=== PATIENT | male | born 1960 | race Caucasian/White ===

== ENCOUNTER 2019-09-08 10:15 | Inpatient (IN) | payer OTHER ==
[~2019-09-08] VITALS: Ht 177.8 cm; Wt 99.1 kg
--- NOTE | 2019-09-08 05:00 | NUR ---
Telemetry admit from ER HILARY MORRISONKATE Irving admitted to Telemetry unit after SBAR received. Patient oriented to Ju Karimi, primary RN, unit, room, bed, and unit policies regarding patient care and visiting hours. Patient now on continuous telemetry monitoring, tele box 68 and telemetry reading on arrival to unit is NSR 64. Patient placed on bedside oxygen, weighed by bedscale and encouraged to call if they need something. All questions and concerns addressed, patient verbalized understanding. Note:
[2019-09-08] MEDS ORDERED: HYDROmorphone HCL 2 MG/ML VL IV ONE ×2 (10:45→12:45)
[2019-09-08] MEDS ORDERED: ONDANSETRON HCL 4 MG/2 ML VIAL IV ONE (10:45)
[2019-09-08 10:50] LABS: Basophils # (auto) 0.1 10 ^3/uL (0-0.2); Basophils % (auto) 0.6 % (0.0-2.0); Eosinophils # (auto) 0 10 ^3/uL (0-0.8); Eosinophils % (auto) 0.1 % (0.0-7.0); Hematocrit 47.4 % (41.0-53.0); Hemoglobin 15.6 g/dL (13.5-17.5); Lymphocytes # (auto) 2.2 10 ^3/uL (0.4-5.4); Monocytes # (auto) 1.6 10 ^3/uL (0-1.3); Monocytes % (auto) 8.2 % (0.0-12.0); Neutrophils # (auto) 16.1 10 ^3/uL (1.6-8.6); Neutrophils % (auto) 80.1 % (37.0-80.0); Nucleated Red Blood Cells % 0.1 %; Platelet Count (auto) 376 10^3/uL (140-450); Red Blood Cells 5.04 10^6/uL (4.5-5.90)
[2019-09-08 10:53] LABS: INR 0.96 (0.9-1.15); Partial Thromboplastin Time 25.4 sec (23.64-32.05)
[2019-09-08 10:57] LABS: Albumin 3.2 g/dL (3.4-5.0); Calcium 8.6 mg/dL (8.5-10.1); Potassium 3.6 mmol/L (3.5-5.1)
[2019-09-08] MEDS ORDERED: LABETALOL HCL 5 MG/ML 4ML SYRINGE IV ONE ×2 (11:00→12:45)
[2019-09-08] MEDS ORDERED: SODIUM CHLORIDE 0.9% 1,000 ML IV ONE (11:00)
[2019-09-08 11:02] LABS: BUN/Creatinine Ratio 12.1; Bilirubin, Total 0.9 mg/dL (0.2-1.0)
[2019-09-08] MEDS ORDERED: PIPERACILLIN-TAZOB 3.375GM 100 ML IV ONE (12:00)
[2019-09-08 12:39] LABS: Urine Bacteria NONE SEEN /hpf (None Seen); Urine Blood Negative /uL (Negative); Urine Specific Gravity 1.024 (1.001-1.035); Urine WBC 1 /hpf (0 - 3)
[2019-09-08] MEDS ORDERED: LABETALOL HCL 5 MG/ML ML 20ML VIAL IV ONE (13:00)
[2019-09-08] MEDS ORDERED: GASTROGRAFIN 120 ML SOL ONE (13:06)
[2019-09-08] MEDS ORDERED: MORPHINE SULF INJ 2 MG/ML SYRINGE 1ML IV PRN ×2 (13:15→13:30)
[2019-09-08] MEDS ORDERED: NITROGLYCERIN 0.4 MG SL TAB SL PRN (13:15)
[2019-09-08] MEDS ORDERED: DEXTROSE (50%) 50ML SYRG IV PRN (13:30)
[2019-09-08] MEDS ORDERED: LORazepam 2MG/ML-1ML VIAL IV PRN (13:30)
[2019-09-08] MEDS ORDERED: ALBUTEROL SULF 2.5 MG/0.5ML(0.5%) NEB SOLN NEB PRN (13:30)
[2019-09-08] MEDS ORDERED: ONDANSETRON HCL 4 MG/2 ML VIAL IV PRN (13:30)
[2019-09-08] MEDS ORDERED: PROMETHAZINE HCL 25 MG/ML 1ML IV PRN (13:30)
[2019-09-08] MEDS ORDERED: levoFLOXacin 500MG 100 ML IV ONE (13:30)
[2019-09-08] MEDS ORDERED: ENOXAPARIN SOD 40 MG/0.4 ML SYRINGE SC ONE (13:45)
[2019-09-08] MEDS ORDERED: metroNIDAZOLE 500MG/100ML 100 ML IV ONE (13:45)
[2019-09-08 14:34] VITALS: BP 181/105
[2019-09-08] MEDS: ACCU-CHEK COMFORT CURVE STRIP VI SCH ×2 (16:33→20:11)
[2019-09-08] MEDS: SODIUM CHLORIDE 0.9% 1,000 ML IV SCH ×2 (16:33→23:30)
[2019-09-08] MEDS: FAMOTIDINE (10MG/ML) 2ML VL IV SCH (16:33)
[2019-09-08] MEDS: InsuLIN REG 1unit/0.01ml Soln (100units/ml) SC SCH ×3 (16:33→20:15)
[2019-09-08] MEDS: metroNIDAZOLE 500MG/100ML 100 ML IV SCH ×2 (16:33→21:58)
[2019-09-08] MEDS ORDERED: LABETALOL HCL 5 MG/ML 4ML SYRINGE IV PRN (16:45)
[2019-09-09] MEDS: MORPHINE SULF INJ 2 MG/ML SYRINGE 1ML IV PRN ×3 (00:28→21:45)
[2019-09-09] MEDS: FAMOTIDINE (10MG/ML) 2ML VL IV SCH ×2 (01:36→14:22)
[2019-09-09] MEDS: InsuLIN REG 1unit/0.01ml Soln (100units/ml) SC SCH ×6 (03:57→21:29)
[2019-09-09] MEDS: ACCU-CHEK COMFORT CURVE STRIP VI SCH ×6 (03:57→21:29)
[2019-09-09 05:00] VITALS: BP 110/64
[2019-09-09 05:22] VITALS: BP 120/67
[2019-09-09] MEDS: metroNIDAZOLE 500MG/100ML 100 ML IV SCH ×3 (06:11→21:30)
--- NOTE | 2019-09-09 06:47 | NUR ---
PT SCREAMING AT STAFF STATING HE WANTS EVERYTHING DISCONNECTED SO HE CAN GO TO THE BATHROOM. GAVE PT A URINAL WHICH HE THREW ON THE FLOOR. PT THREATENING TO PULL OUT IV AND NGTUBE IF HE IS NOT ASSISTED INTO THE BATHROOM.PT REFUSES TO USE THE URINAL.OXYGEN TUBING CONVERTED TO EXTRA LONG LENGTH;NG TUBE DISCONNECTED FROM THE WALL AND IV DISCONNECTED FROM PATIENT'S ARM SO HE CAN WALK TO THE BATHROOM.
--- NOTE | 2019-09-09 07:50 | NUR ---
Patient on O2 at 3 LPM via long nasal cannula.
--- NOTE | 2019-09-09 07:50 | NUR ---
Patient complained of dry mouth, asked for ice chips. Explained to patient he's on nothing by mouth. Patient screamed, verbalized "I swear I 'll gonna leave this hospital!" Patient screamed he will pull out all his tubings. Told the patient calmly not to raise his voice. Patient on NGT on low intermittent suction draining reddish/brownish fluid. About 100 ml of fluid noted.
--- NOTE | 2019-09-09 08:00 | NUR ---
Patient asleep at this time. Bedside commode provided. Urinal at bedside which patient refused to use.
--- NOTE | 2019-09-09 08:00 | NUR ---
Accu check = 179 mg/dl.
[2019-09-09] MEDS: SODIUM CHLORIDE 0.9% 1,000 ML IV SCH ×2 (08:14→17:17)
--- NOTE | 2019-09-09 08:30 | NUR ---
PT. ASSESSED FOR PRN. MN. TX.,NO RESP. DISTRESS OR SOB NOTED. PT. IS AWAKE AND ALERT. BS. ARE CLEAR, SPO2 93% ON RA, PRN. TX. NOT INDICATED AT THIS TIME, PT. MAY CALL IF NEEDED.
[2019-09-09 09:00] VITALS: BP 150/90
[2019-09-09 09:08] LABS: Basophils # (auto) 0.1 10 ^3/uL (0-0.2); Basophils % (auto) 0.9 % (0.0-2.0); Eosinophils # (auto) 0.1 10 ^3/uL (0-0.8); Hematocrit 43.9 % (41.0-53.0); Hemoglobin 14.2 g/dL (13.5-17.5); Lymphocytes # (auto) 2.8 10 ^3/uL (0.4-5.4); Mean Corpuscular Hemoglobin 31.1 pg (28.0-32.0); Mean Corpuscular Hgb Conc. 32.4 g/dL (32.0-36.0); Monocytes # (auto) 1.2 10 ^3/uL (0-1.3); Monocytes % (auto) 9.2 % (0.0-12.0); Neutrophils # (auto) 8.4 10 ^3/uL (1.6-8.6); Neutrophils % (auto) 66.9 % (37.0-80.0); Platelet Count (auto) 331 10^3/uL (140-450); Red Blood Cells 4.57 10^6/uL (4.5-5.90); Red Cell Distribution Width 15.6 % (11.8-14.3); White Blood Cell 12.6 10^3/uL (4.4-10.8)
[2019-09-09 09:24] LABS: Albumin 2.6 g/dL (3.4-5.0); Calcium 7.8 mg/dL (8.5-10.1); Potassium 3.9 mmol/L (3.5-5.1)
[2019-09-09 09:29] LABS: Bilirubin, Total 0.7 mg/dL (0.2-1.0); Total Protein 6.1 g/dL (6.4-8.2)
[2019-09-09] MEDS: ENOXAPARIN SOD 40 MG/0.4 ML SYRINGE SC SCH (10:00)
[2019-09-09] MEDS: levoFLOXacin 500MG 100 ML IV SCH (10:31)
--- NOTE | 2019-09-09 10:38 | NUR ---
About 350 ml of reddish/brownish fluid draining on the suction bottle.
--- NOTE | 2019-09-09 10:40 | NUR ---
Lynn Durán at bedside for GI Consult follow up. MD ordered to keep patient NPO except ice chips. On NGT on low intermittent suction.
--- NOTE | 2019-09-09 11:02 | NUR ---
About 450 ml of reddish/brownish fluid draining from the suction tube.
--- NOTE | 2019-09-09 11:50 | NUR ---
About 750 ml of reddish/brownish fluid collected from the suction container. Changed the suction container.
--- NOTE | 2019-09-09 12:00 | NUR ---
Dr. Brice came over to see the patient. Patient is asleep. On O2 at 2 LPM via long nasal cannula. No acute distress noted.
[2019-09-09 13:00] VITALS: BP 161/84
--- NOTE | 2019-09-09 14:10 | NUR ---
Lynn Durán clamped the NGT. Will continue to monitor the patient.
[2019-09-09] MEDS ORDERED: LORazepam 2MG/ML-1ML VIAL IV PRN (14:15)
--- NOTE | 2019-09-09 14:22 | NUR ---
Patient stated his back pain level at 8/10 at this time. Morphine Sulf Inj given for pain.
--- NOTE | 2019-09-09 14:35 | NUR ---
Patient off unit. At Radiology at this time.
[2019-09-09] MEDS ORDERED: IOHEXOL 350 MG/ML 100ML IJ ONE (14:46)
[2019-09-09 16:34] VITALS: BP 163/94
[2019-09-09] MEDS ORDERED: LABETALOL HCL 5 MG/ML ML 20ML VIAL IV PRN (18:00)
--- NOTE | 2019-09-09 18:00 | NUR ---
Called Pharmacy that Labetalol 10 mg IV not available at [facility].
--- NOTE | 2019-09-09 19:30 | NUR ---
Opening Shift Note Assumed care of patient. Patient is sleeping comfortably. No S/S of distress/SOB or pain. Instructed on POC and to call for assist PRN, will continue to monitor for changes Q1hr and PRN. Bed locked in lowest position and bed rails up x2. Call light within reach. NG tube intact.
--- NOTE | 2019-09-09 19:36 | NUR ---
Respiratory note: ASSESSED PT FOR PRN TX PT WAS ASLEEP, NO RESP DISTRESS NOTED. HR 97%, RR 20, SPO2 100% ON 3L NC. BS ARE CLEAR, NO INDICATION FOR TX AT THIS TIME. PT KNOWS TO HAVE RT PAGED IF TX IS NEEDED. TITRATED FIO2 TO 2L
[2019-09-09 22:00] VITALS: BP 148/85
[2019-09-10] MEDS: ACCU-CHEK COMFORT CURVE STRIP VI SCH ×3 (01:53→08:00)
[2019-09-10] MEDS: FAMOTIDINE (10MG/ML) 2ML VL IV SCH ×2 (01:53→14:22)
[2019-09-10] MEDS: InsuLIN REG 1unit/0.01ml Soln (100units/ml) SC SCH ×3 (01:54→10:16)
[2019-09-10 05:00] VITALS: BP 142/82
[2019-09-10] MEDS: SODIUM CHLORIDE 0.9% 1,000 ML IV SCH ×2 (05:22→15:04)
[2019-09-10 06:17] LABS: Basophils # (auto) 0.2 10 ^3/uL (0-0.2); Basophils % (auto) 1.1 % (0.0-2.0); Eosinophils # (auto) 0.1 10 ^3/uL (0-0.8); Eosinophils % (auto) 0.6 % (0.0-7.0); Hematocrit 42.7 % (41.0-53.0); Hemoglobin 13.9 g/dL (13.5-17.5); Lymphocytes # (auto) 3.4 10 ^3/uL (0.4-5.4); Lymphocytes % (auto) 22.3 % (10.0-50.0); Mean Corpuscular Hemoglobin 31.2 pg (28.0-32.0); Mean Corpuscular Hgb Conc. 32.6 g/dL (32.0-36.0); Mean Corpuscular Volume 95.5 fL (80.0-100.0); Monocytes # (auto) 1.4 10 ^3/uL (0-1.3); Monocytes % (auto) 9.2 % (0.0-12.0); Neutrophils # (auto) 10.2 10 ^3/uL (1.6-8.6); Neutrophils % (auto) 66.8 % (37.0-80.0); Platelet Count (auto) 359 10^3/uL (140-450); Red Blood Cells 4.47 10^6/uL (4.5-5.90); Red Cell Distribution Width 15.4 % (11.8-14.3); White Blood Cell 15.2 10^3/uL (4.4-10.8)
[2019-09-10] MEDS: metroNIDAZOLE 500MG/100ML 100 ML IV SCH ×2 (06:34→14:22)
[2019-09-10 06:45] LABS: Potassium 3.8 mmol/L (3.5-5.1)
[2019-09-10] MEDS: MORPHINE SULF INJ 2 MG/ML SYRINGE 1ML IV PRN (06:50)
[2019-09-10 07:08] LABS: Albumin 2.5 g/dL (3.4-5.0); BUN/Creatinine Ratio 13.5; Bilirubin, Total 0.7 mg/dL (0.2-1.0); Calcium 7.8 mg/dL (8.5-10.1); Magnesium 2.5 mg/dL (1.6-2.6); Total Protein 6.1 g/dL (6.4-8.2)
--- NOTE | 2019-09-10 07:30 | NUR ---
Opening Shift Note Assumed care of patient, awake and alert. No S/S of distress/SOB or pain. Instructed on POC and to call for assist PRN, will continue to monitor for changes Q1hr and PRN.
[2019-09-10] MEDS: levoFLOXacin 500MG 100 ML IV SCH (09:53)
[2019-09-10] MEDS: ENOXAPARIN SOD 40 MG/0.4 ML SYRINGE SC SCH (09:54)
[2019-09-10] MEDS ORDERED: InsuLIN REG 1unit/0.01ml Soln (100units/ml) SC SCH (11:30)
[2019-09-10] MEDS ORDERED: DEXTROSE (50%) 50ML SYRG IV PRN (11:30)
[2019-09-10] MEDS ORDERED: ACCU-CHEK COMFORT CURVE STRIP VI SCH (11:30)
[2019-09-10 12:29] VITALS: BP 108/77
--- NOTE | 2019-09-10 15:13 | NUR ---
Respiratory note: PATIENT ASSESSED FOR PRN MED-NEB TX; TX NOT INDICATED AT THIS TIME PATIENT IS IN NO ACUTE RESPIRATORY DISTRESS AND DENIES NEED. PATIENT INSTRUCTED TO CALL FOR RT IF HE FEELS THE NEED FOR TX AT A LATER TIME. SPO2 100% 3LPM N/C
--- NOTE | 2019-09-10 16:36 | NUR ---
AMA Note SHAKA MORRISON states they want to leave the hospital Against Medical Advice (AMA). Patient encouraged to stay for further treatment/stabilization. Lissett CARL notified of patient's wishes. Patient advised of the risks and benefits of leaving AMA. Patient verbalized understanding. Patient encouraged to return to the ER if symptoms do not improve or worsen.
--- NOTE | 2019-09-10 17:02 | NUR ---
left message with with the patient's telling them that he left a belongings bag that contains his medications. awaiting to hear a call back.
== END 2019-09-10 16:36 | disposition left against medical advice (07) | DRG 388 ==
LOC: ER 10:15 → EDBD 10:15 → TELE 10:16 → TELE-WESTW 09-09 04:45
PROVIDERS: ADMIT Internal Medicine; ATTEND Internal Medicine
DX: K56.600 Partial intestinal obstruction, unspecified as to cause (principal); J96.01 Acute respiratory failure with hypoxia; E44.1 Mild protein-calorie malnutrition; R65.10 Systemic inflammatory response syndrome (SIRS) of non-infectious origin without acute organ dysfunction; R18.8 Other ascites; E11.65 Type 2 diabetes mellitus with hyperglycemia; I16.0 Hypertensive urgency; E66.9 Obesity, unspecified; Z68.31 Body mass index [BMI] 31.0-31.9, adult; I10 Essential (primary) hypertension; Z90.81 Acquired absence of spleen; Z87.19 Personal history of other diseases of the digestive system; Z53.29 Procedure and treatment not carried out because of patient's decision for other reasons
CPT/HCPCS: 36415; 36600; 71045; 71275; 74018; 74176; 74250; 80053; 80061; 81001; 82150; 82550; 82805; 82962; 83036; 83605; 83690; 83735; 83880; 84484; 85025; 85379; 85610; 85652; 85730; 87040; 93005; 93306; 96361; 96374; 96375; 99291; G0378; J1815; J1956; J2405; J2543; J3490